=== PATIENT | male | born 1960 | race Caucasian/White ===

== ENCOUNTER 2018-02-27 09:42 | Observation (INO) | payer OTHER ==
[2018-02-27] MEDS ORDERED: NS 500 ML IV ONE (09:48)
[2018-02-27] MEDS ORDERED: ASPIRIN 81 MG CHEWABLE TAB PO ONE (09:48)
--- NOTE | 2018-02-27 09:55 | CPEKG ---
Heart Rate: 84 RR Interval: 714 P-R Interval: 144 QRSD Interval: 86 QT Interval: 372 QTC Interval: 440 P [place]: 81 QRS [place]: 87 T Wave [place]: 60 EKG Severity - ABNORMAL ECG - EKG Impression: SINUS RHYTHM EKG Impression: BIATRIAL ABNORMALITIES EKG Impression: MINIMAL ST ELEVATION, ANTERIOR LEADS Electronically Signed By: Jina Herrera 27-Feb-2018 15:11:29
[2018-02-27 10:07] LABS: PLATELET COUNT 135 10^3/uL (150-400)
[2018-02-27 10:15] LABS: INR 0.96 (0.83-1.16)
[2018-02-27] MEDS ORDERED: NITROGLYCERIN 0.4 MG BTL SL ONE (10:15)
[2018-02-27] MEDS ORDERED: NITROGLYCERIN 0.4 MG BTL SL PRN ×2 (10:16→16:35)
--- NOTE | 2018-02-27 10:30 | EDPHY ---
H & P Time Seen by Provider: 02/27/18 09:48 HPI/ROS: HPI Chest pain. 57-year-old male by private vehicle. This patient reports that at 5:00 a.m. He woke with aching mid substernal chest pain with associated shortness of breath. He states the pain is somewhat worse with taking a deep breath. Denies radiation of the pain. States that he has had pleurisy in the past which is more of a sharp pain. He describes this as a dull deep ache in the middle of his chest. He is a smoker. His father had a SD in his early 70s. He otherwise denies cardiac risk factors. He is not obese. ROS: Constitutional: No fever, no chills. No weakness. Eyes: No discharge. No changes in vision. ENT: No sore throat. No nasal congestion or rhinorrhea. Respiratory: No cough. As above. Cardiac: As above, no palpitations. Gastrointestinal: No abdominal pain, no vomiting, no diarrhea. Genitourinary: No hematuria. No dysuria or increased frequency with urination. Musculoskeletal: No back pain. No neck pain. No myalgias or arthralgias. Skin: No rashes. Neurological: No headache. No focal weakness or altered sensation. Past medical history: Bladder cancer. Not on chemotherapy. Social history: Smoker. Here by himself currently. Denies alcohol. Physical Exam: General Appearance: Alert, appears mildly anxious and uncomfortable. Sitting upright on the gurney. This patient is responding to questions appropriately and in full sentences. This patient appears well-hydrated and well-nourished. Eyes: Pupils equal and round no pallor or injection. No lid edema, erythema or injection. Respiratory: There are no retractions, lungs are clear to auscultation with good air movement bilaterally. Cardiovascular: Regular rate and rhythm. No murmur. Gastrointestinal: Abdomen is soft and nontender, no masses, bowel sounds normal. No focal tenderness at McBurney's point. No Urbina sign. Neurological: Motor sensory function is grossly intact. Cranial nerves are normal. Gait is normal. Skin: Warm and dry, no rashes. Musculoskeletal: Neck is supple and nontender. Extremities are symmetrical. All joints range without pain or impingement. Psychiatric: No agitation. No depression. Database: EKG: EKG time is 9:52 a.m.; EKG shows a narrow complex normal sinus rhythm with a ventricular rate of 84. The MN, QRS, QT intervals are within normal limits. Minimal J-point elevation leads V2 through V3. No reciprocal changes. No evidence of right heart strain. Interpreted by me. Imaging: Chest x-ray AP portable; the cardiac mediastinal silhouette is unremarkable. No evidence of infiltrate or pneumothorax. Possible interstitial lung disease. No other acute cardiopulmonary disease process noted. Interpreted by me. Procedures: Emergency department course: Triage vital signs reviewed. He is mildly hypertensive. Vital signs otherwise normal. He was given 324 mg of chewed aspirin. EKG obtained and reviewed by myself. Patient given 1 sublingual nitroglycerin. He did not like this. Stated that it did not help his pain and made him feel woozy. Heart score is 4. Admission was discussed with the patient. He endorses. 10:55 a.m., patient given 25 mcg of IV fentanyl for chest pain. As noted above he did not tolerate nitroglycerin well. 11:20 a.m., spoke with the on-call hospitalist. Patient accepted for admission to Dr. Perez. The patient's remaining emergency department course under my care has been uneventful. He is feeling better and denies chest pain after fentanyl. He was admitted in stable condition. Differential Diagnosis: The differential diagnosis on this patient includes but is not limited to acute coronary syndrome, pleurisy, pulmonary embolism, GERD. This represents a partial list of diagnoses considered. These considerations are based on history , physical exam, past history, reassessment and diagnostic testing. Smoking Status: Current every day smoker Constitutional: Initial Vital Signs Temperature (C) 36.5 C 02/27/18 09:44 Heart Rate 81 02/27/18 09:44 Respiratory Rate 18 02/27/18 09:44 Blood Pressure 134/79 H 02/27/18 09:44 O2 Sat (%) 93 02/27/18 09:44 O2 Delivery Mode Room Air O2 (L/minute) 2 Allergies/Adverse Reactions: pollen extracts Allergy (Verified 02/27/18 11:22) Home Medications: Medication Instructions Recorded Albuterol [Proventil Inhaler HFA 1 - 2 puffs IH DAILY PRN 02/27/18 (*)] Herbals/Supplements -Info Only 1 ea PO DAILY 02/27/18 Ibuprofen [Motrin (*)] 400 mg PO DAILY PRN 02/27/18 Medical Decision Making - Diagnostics Imaging Results: Imaging Impressions Chest X-Ray 02/27/18 09:48 Impression: Possible interstitial lung disease. Otherwise normal portable exam. Consider obtaining a routine PA and lateral chest, when the patient is clinically able. - Data Points Laboratory Results: Laboratory Results 02/27/18 10:00 02/27/18 10:00 02/27/18 02/27/18 02/27/18 10:04 10:00 10:00 WBC RBC Hgb Hct MCV MCH MCHC RDW Plt Count MPV Neut % (Auto) Lymph % (Auto) Levy % (Auto) Eos % (Auto) Baso % (Auto) Nucleat RBC Rel Count Absolute Neuts (auto) Absolute Lymphs (auto) Absolute Monos (auto) Absolute Eos (auto) Absolute Basos (auto) Absolute Nucleated RBC Immature Gran % Immature Gran # PT 13.0 SEC SEC (12.0-15.0) INR 0.96 (0.83-1.16) APTT 27.7 SEC SEC (23.0-38.0) D-Dimer < 0.27 ug/mLFEU ug/mLFEU (0.00-0.50) Sodium 138 mEq/L mEq/L (135-145) Potassium 4.6 mEq/L mEq/L (3.3-5.0) Chloride 106 mEq/L mEq/L (97-110) Carbon Dioxide 24 mEq/l mEq/l (22-31) Anion Gap 8 mEq/L mEq/L (8-16) BUN 23 mg/dL mg/dL (7-23) Creatinine 0.8 mg/dL mg/dL (0.7-1.3) Estimated GFR > 60 Glucose 114 mg/dL H mg/dL (70-100) Calcium 9.7 mg/dL mg/dL (8.5-10.4) POC Troponin I 0.00 ng/mL ng/mL (0.00-0.08) NT-Pro-B Natriuret Pep 59 pg/mL pg/mL (0-125) 02/27/18 10:00 WBC 13.52 10^3/uL H 10^3/uL (3.80-9.50) RBC 5.41 10^6/uL 10^6/uL (4.40-6.38) Hgb 16.9 g/dL g/dL (13.7-17.5) Hct 49.8 % % (40.0-51.0) MCV 92.1 fL fL (81.5-99.8) MCH 31.2 pg pg (27.9-34.1) MCHC 33.9 g/dL g/dL (32.4-36.7) RDW 13.1 % % (11.5-15.2) Plt Count 135 10^3/uL L 10^3/uL (150-400) MPV 9.0 fL fL (8.7-11.7) Neut % (Auto) 82.9 % H % (39.3-74.2) Lymph % (Auto) 9.2 % L % (15.0-45.0) Levy % (Auto) 7.2 % % (4.5-13.0) Eos % (Auto) 0.1 % L % (0.6-7.6) Baso % (Auto) 0.2 % L % (0.3-1.7) Nucleat RBC Rel Count 0.0 % % (0.0-0.2) Absolute Neuts (auto) 11.18 10^3/uL H 10^3/uL (1.70-6.50) Absolute Lymphs (auto) 1.25 10^3/uL 10^3/uL (1.00-3.00) Absolute Monos (auto) 0.98 10^3/uL H 10^3/uL (0.30-0.80) Absolute Eos (auto) 0.02 10^3/uL L 10^3/uL (0.03-0.40) Absolute Basos (auto) 0.03 10^3/uL 10^3/uL (0.02-0.10) Absolute Nucleated RBC 0.00 10^3/uL 10^3/uL (0-0.01) Immature Gran % 0.4 % % (0.0-1.1) Immature Gran # 0.06 10^3/uL 10^3/uL (0.00-0.10) PT INR APTT D-Dimer Sodium Potassium Chloride Carbon Dioxide Anion Gap BUN Creatinine Estimated GFR Glucose Calcium POC Troponin I NT-Pro-B Natriuret Pep Medications Given: Nitroglycerin (Nitrostat) 0.4 mg SL Q5M PRN PRN Reason: Chest Pain Last Admin: 02/27/18 10:18 Dose: 0.4 mg Discontinued Medications Aspirin (Aspirin) 324 mg PO EDNOW ONE Stop: 02/27/18 09:49 Last Admin: 02/27/18 09:57 Dose: Not Given Fentanyl (Sublimaze) 25 mcg IVP EDNOW ONE Stop: 02/27/18 10:58 Last Admin: 02/27/18 11:01 Dose: 25 mcg Sodium Chloride (Ns) 500 mls @ 1,000 mls/hr IV EDNOW ONE PRN Reason: Protocol Stop: 02/27/18 10:17 Last Admin: 02/27/18 10:10 Dose: 500 mls Point of Care Test Results: Chemistry 02/27/18 10:04 POC Troponin I 0.00 ng/mL ng/mL (0.00-0.08) Departure - Departure Disposition: [facility] Inpatient Acute Clinical Impression: Chest pain Referrals: NONE *PRIMARY CARE P,. [Primary Care Provider] - As per Instructions
[2018-02-27] MEDS ORDERED: fentaNYL 100 MCG/2 ML INJ IVP ONE (10:57)
[2018-02-27] MEDS ORDERED: KETOROLAC 30 MG/1 ML SDV IVP ONE (11:38)
[2018-02-27] MEDS ORDERED: ONDANSETRON DISINTEGRATING 4 MG TAB PO PRN (13:16)
[2018-02-27] MEDS ORDERED: ONDANSETRON 4 MG/2 ML VIAL IVP PRN (13:16)
[2018-02-27] MEDS ORDERED: ALBUTEROL 60 PUFFS/8 GM MDI IH PRN (13:19)
--- NOTE | 2018-02-27 13:24 | PDGENHP ---
History and Physical - Chief Complaint chest pain - History of Present Illness 57yo M with history of bladder cancer s/p resection, pleurisy who presents with chest pain that awoke him from sleep around 5am. Feeling well before today without any viral symptoms. Pain located on left side of chest and left scapular area without radiation. Associated with shortness of breath but no diaphoresis or nausea. Pleuritic in nature and also seemed to slightly worsen when he lies flat and improves with standing. Not exertional but progressively worsened throughout the morning prompting him to come to ED. He has never had pain like this before. Possibly had stress test ~20 years ago with normal findings. In the ED, had ECG with 1mm ARIADNE in V2-V3 with no reciprocal changes and had negative POC troponin. His chest pain improved slightly with SLN but did not resolve. His pain fully abated with a dose of toradol and he is currently chest pain free. History Information - Allergies/Home Medication List Allergies/Adverse Reactions: pollen extracts Allergy (Verified 02/27/18 11:22) Home Medications: Albuterol [Proventil Inhaler HFA (*)] 1 - 2 puffs IH DAILY PRN 02/27/18 [Last Taken Unknown] Herbals/Supplements -Info Only 1 ea PO DAILY 02/27/18 [Last Taken Unknown] Ibuprofen [Motrin (*)] 400 mg PO DAILY PRN 02/27/18 [Last Taken Unknown] I have personally reviewed and updated: family history, medical history, social history, surgical history - Past Medical History Additional medical history: bladder cancer s/p local resection, pleurisy, cytopenia (? thrombocytopenia) - Surgical History Reports: no pertinent surgical hx - Family History Additional family history: Uncle - MA at 40, Father - MA in late 60s - Social History Smoking Status: Current every day smoker (40 pack year history) Alcohol Use: Rarely Drug Use: None Review of Systems Review of Systems: ROS: 10pt was reviewed & negative except for what was stated in HPI & below Constitutional: Reports: chills, diaphoresis, fever EENMT: Reports: no symptoms Cardiac: Reports: chest pain. Denies: edema, lightheadedness, palpitations, syncope Respiratory: Reports: shortness of breath. Denies: cough, orthopnea, wheezing Gastrointestinal: Denies: vomitting, diarrhea, nausea Genitourinary: Reports: no symptoms Muscolosketal: Reports: back pain. Denies: joint swelling, muscle pain Skin: Reports: no symptoms Neurological: Reports: no symptoms Hematologic/Lymphatic: Reports: no symptoms Physical Exam Physical Exam: Temp Pulse Resp BP Pulse Ox 36.6 C 78 22 H 129/78 H 98 02/27/18 11:44 02/27/18 11:44 02/27/18 11:44 02/27/18 11:44 02/27/18 11:44 O2 (L/minute) 2 Constitutional: no apparent distress, appears nourished, not in pain Eyes: PERRL, anicteric sclera, EOMI Ears, Nose, Mouth, Throat: moist mucous membranes, hearing normal, ears appear normal, no oral mucosal ulcers Cardiovascular: regular rate and rhythym, no murmur, rub, or gallop, No JVD, No edema Respiratory: no respiratory distress, reduced air movement (mildly reduced throughout), inspiratory crackles (bilateral bases that improved with coughing) Gastrointestinal: normoactive bowel sounds, soft, non-tender abdomen, no palpable masses Genitourinary: no bladder fullness, no bladder tenderness Skin: warm, normal color, no rashes or abrasions, no fluctuance, no induration, No mottled Musculoskeletal: full muscle strength, no muscle tenderness, normal joint ROM, no joint effusions Neurologic: AAOx3, sensation intact bilaterally, CN II-XII Intact, No weakness Psychiatric: interacting appropriately, not anxious, not encephalopathic, thought process linear Lab Data & Imaging Review 02/27/18 10:00 02/27/18 10:00 WBC 13.52 10^3/uL (3.80-9.50) H 02/27/18 10:00 RBC 5.41 10^6/uL (4.40-6.38) 02/27/18 10:00 Hgb 16.9 g/dL (13.7-17.5) 02/27/18 10:00 Hct 49.8 % (40.0-51.0) 02/27/18 10:00 MCV 92.1 fL (81.5-99.8) 02/27/18 10:00 MCH 31.2 pg (27.9-34.1) 02/27/18 10:00 MCHC 33.9 g/dL (32.4-36.7) 02/27/18 10:00 RDW 13.1 % (11.5-15.2) 02/27/18 10:00 Plt Count 135 10^3/uL (150-400) L 02/27/18 10:00 MPV 9.0 fL (8.7-11.7) 02/27/18 10:00 Neut % (Auto) 82.9 % (39.3-74.2) H 02/27/18 10:00 Lymph % (Auto) 9.2 % (15.0-45.0) L 02/27/18 10:00 [place] % (Auto) 7.2 % (4.5-13.0) 02/27/18 10:00 Eos % (Auto) 0.1 % (0.6-7.6) L 02/27/18 10:00 Baso % (Auto) 0.2 % (0.3-1.7) L 02/27/18 10:00 Nucleat RBC Rel Count 0.0 % (0.0-0.2) 02/27/18 10:00 Absolute Neuts (auto) 11.18 10^3/uL (1.70-6.50) H 02/27/18 10:00 Absolute Lymphs (auto) 1.25 10^3/uL (1.00-3.00) 02/27/18 10:00 Absolute Monos (auto) 0.98 10^3/uL (0.30-0.80) H 02/27/18 10:00 Absolute Eos (auto) 0.02 10^3/uL (0.03-0.40) L 02/27/18 10:00 Absolute Basos (auto) 0.03 10^3/uL (0.02-0.10) 02/27/18 10:00 Absolute Nucleated RBC 0.00 10^3/uL (0-0.01) 02/27/18 10:00 Immature Gran % 0.4 % (0.0-1.1) 02/27/18 10:00 Immature Gran # 0.06 10^3/uL (0.00-0.10) 02/27/18 10:00 PT 13.0 SEC (12.0-15.0) 02/27/18 10:00 INR 0.96 (0.83-1.16) 02/27/18 10:00 APTT 27.7 SEC (23.0-38.0) 02/27/18 10:00 D-Dimer < 0.27 ug/mLFEU (0.00-0.50) 02/27/18 10:00 Sodium 138 mEq/L (135-145) 02/27/18 10:00 Potassium 4.6 mEq/L (3.3-5.0) 02/27/18 10:00 Chloride 106 mEq/L (97-110) 02/27/18 10:00 Carbon Dioxide 24 mEq/l (22-31) 02/27/18 10:00 Anion Gap 8 mEq/L (8-16) 02/27/18 10:00 BUN 23 mg/dL (7-23) 02/27/18 10:00 Creatinine 0.8 mg/dL (0.7-1.3) 02/27/18 10:00 Estimated GFR > 60 02/27/18 10:00 Glucose 114 mg/dL (70-100) H 02/27/18 10:00 Calcium 9.7 mg/dL (8.5-10.4) 02/27/18 10:00 POC Troponin I 0.00 ng/mL (0.00-0.08) 02/27/18 10:04 NT-Pro-B Natriuret Pep 59 pg/mL (0-125) 02/27/18 10:00 Visualized and Interpreted Chest x-ray results: Yes Chest X-Ray results: no infiltrate, other (hyperexpanded with prominent interstitial markings) Visualized and Interpreted EKG results: Yes EKG Interpretation: Positive for: normal sinsus rhythm (biatrial enlargement, 1mm ARIADNE in V2-V3 without reciprocal changes) Assessment & Plan Assessment: 57yo M with history of tobacco use and family history of premature CAD presents with chest pain admitted for ACS rule out. Plan: #Chest pain: Atypical in nature. Intermediate risk for coronary disease. Symptoms also concerning for pericarditis given resolution with nsaids. Will check serial troponin/ECG, continuous telemetry monitoring and order TTE. If troponins remain negative, plan to proceed with exercise stress testing. Unlikely PE with negative d-dimer. #Thrombocytopenia: Mild. Per patient, he thinks this is chronic. No e/o bleeding. Monitor. #Leukocytosis: Suspect reactive in setting of above. Monitor. #Tobacco use: Nicotine patch PRN. Given his extensive history and hyperexpanded lungs, he almost certainly as emphysema. Will order PRN albuterol. He should establish with PCP for PFTs as outpatient. VTE ppx: low risk, SCDs Diet: cardiac Code: Full Disposition: admit for observation for evaluation of chest pain with serial labs , cardiac monitoring.
[2018-02-27] MEDS: ACETAMINOPHEN 325 MG TAB PO PRN ×2 (14:04→18:29)
--- NOTE | 2018-02-27 14:13 | CPEKG ---
Heart Rate: 66 RR Interval: 909 P-R Interval: 160 QRSD Interval: 82 QT Interval: 392 QTC Interval: 411 P [place]: 79 QRS [place]: 80 T Wave [place]: 64 EKG Severity - ABNORMAL ECG - EKG Impression: SINUS RHYTHM EKG Impression: ST ELEVATION SUGGESTS PERICARDITIS - CANNOT RULE OUT ANTERIOR ISCHEMIA Electronically Signed By: Birgit Fonseca 27-Feb-2018 17:13:17
--- NOTE | 2018-02-27 15:44 | ECHO ---
[email or web address] [address] [address] Main: [phone] Fax: Transthoracic Echocardiogram Name: ANETTE MCKEON MR#: [id number] Study Date: 02/27/2018 Study Time: 02:55 PM Date of : 1960 Age: 57 year(s) Height: 182.9 cm (72 in.) Weight: 64.86 kg (143 lb.) BSA: 1.85 m2 Gender: Male Examination: Echo Indication: Chest Pain, eval ventricular/valvular function and pericardial disease Image Quality: Technically Difficult Contrast: Requested by: Jose Luis Delong BP: 108 mmHg/62 mmHg Heart Rate: Rhythm: Indication: Chest Pain, eval ventricular/valvular function and pericardial disease Procedure Staff Mess Cook: Reading Physician: Requesting Provider: Mess Cook: Shruthi Ludwig [facility] Reading Physician: Jesse Sultana MD Requesting Provider: Conclusions: Normal global systolic LV function. EF is 58 %. There is mild thickening of the mitral valve leaflets. Trivial mitral valve regurgitation. Cannot rule out bicuspid aortic valve. Mild tricuspid regurgitation is present. Right ventricular systolic pressure measures 20mmHg. Normal size aortic root measuring 3.2 cm. Measurements: Chambers Valvular Assessment AV/MV Valvular Assessment TV/PV Normal Normal Normal Name Value Range Name Value Range Name Value Range Ao Jennifer (MM): 3.2 cm (2.2 cm-3.7 AV Vmax: 1.20 m/s (1 m/s-1.7 TR Vmax: 1.91 mm/s ( - ) cm) m/s) TR PGmax: 15 mmHg ( - ) IVSd (2D): 0.9 cm (0.6 cm-1.1 AV maxP mmHg ( - ) syst. PAP: 20 mmHg ( - ) cm) LVOT Vmax: 0.68 m/s (0.7 m/s-1.1 PV Vmax: 0.71 m/s (0.6 m/s-0.9 LVDd (2D): 4.0 cm (4.2 cm-5.9 m/s) m/s) cm) MV E Vmax: 0.61 m/s ( - ) PV PGmax: 2 mmHg ( - ) LVDs (2D): 2.8 cm (2.1 cm-4 MV A Vmax: 0.44 m/s ( - ) cm) MV E/A: 1.39 ( - ) LVPWd (2D): 0.8 cm (0.6 cm-1 cm) LVEF (2D): 58 (>=54 %) RVDd(2D): 2.9 cm (1.9 cm-3.8 cmmm) Patient: ANETTE MCKEON Study Date: 02/27/2018 Page 1 of 2 02:55 PM Continued Measurements: Chambers Valvular Assessment AV/MV Valvular Assessment TV/PV Name Value Name Value Name Value LADs Lon.5 cm MV DecTime: 327 m/s CVP (est.): 5 mmHg LA Area: 12.5 cm2 MV E' Septal: 0.10 m/s TAPSE: 1.9 cm MV E/E' Septal: 5.90 RA Area: 10.3 cm2 Additional Vessels Name Value Ao Ascendin.6 cm Findings: Left Ventricle: Normal size left ventricle. No LV hypertrophy. Normal global systolic LV function. EF is 58 %. No regional wall motion abnormality. Normal diastolic LV function. Right Ventricle: Normal size right ventricle. Normal RV function. Left Atrium: The left atrium is normal in size. Right Atrium: The right atrium is normal in size. Mitral Valve: The mitral valve is normal in appearance. There is mild thickening of the mitral valve leaflets. Trivial mitral valve regurgitation. No mitral stenosis is present. Aortic Valve: Cannot rule out bicuspid aortic valve. There is no aortic valve regurgitation. No aortic valve stenosis is present. Tricuspid Valve: The tricuspid valve is normal in appearance and function. Mild tricuspid regurgitation is present. Right ventricular systolic pressure measures 20mmHg. The pulmonary artery pressure is normal. Pulmonic Valve: Pulmonary valve not well visualized. There is no pulmonic regurgitation seen. Aorta: Normal size aortic root measuring 3.2 cm. Normal size ascending aorta measuring 2.6 cm. IVC: Normal size and course of the IVC. Pericardium: No pericardial effusion. (No Signature Object) Patient: ANETTE MCKEON Study Date: 02/27/2018 Page 2 of 2 02:55 PM [id number]
[2018-02-27] MEDS: KETOROLAC 15 MG/1 ML SDV IVP PRN (20:48)
[2018-02-28] MEDS: KETOROLAC 15 MG/1 ML SDV IVP PRN (03:40)
[2018-02-28 04:48] LABS: PLATELET COUNT 114 10^3/uL (150-400)
[2018-02-28 07:53] VITALS: BP 106/57
[2018-02-28] MEDS ORDERED: PNEUMOCOCCAL 0.5ML VACCINE VIAL IM ONE ×2 (10:20→15:30)
--- NOTE | 2018-02-28 11:50 | CPR ---
[f rep st] NONINVASIVE CARDIAC PROCEDURE REPORT PROCEDURE: Exercise treadmill with exercise treadmill MPI study. 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 PRE: After obtaining informed consent, patient was placed on electrocardiogram. Initial EKG showed sinus rhythm with mildly peaked T-waves in V2 and V3, RSR prime noted in V1. Initial blood pressure was 118/60, saturation 95% on room air. Patient reporting occasional chest pr essure on left side with inspiration and expiration, but not continuous. Reporting no other symptoms . STRESS: Patient was placed on exercise treadmill, following standard [place] protocol with the followin g findings: 1. Patient exercised for 9 minutes and 45 seconds. 2. 10.2 METS. 3. Heart rate obtained was 139 beats per minute, which was 86% of MPHR. 4. Patient did report continuation of inspiration and expiration left-sided chest pressure, but beatriz es it getting worsened with exertion. No chest pressure suggestive of exertional ischemia. 5. No arrhythmias noted during rest, stress or recovery. 6. BP response at rest 118/60, peak 168/70. 7. Patient did note at peak exercise to drop saturation down to 89%. 8. Test was stopped due to maximum effort. 9. Castellanos treadmill score of 9, placing him at low cardiovascular risk. RECOVERY: Patient recovered for 5 minutes, saturations increased back to greater than 90%. Blood pr essure and heart rate returned back to normal. No arrhythmias noted. No significant change in his r espiratory pain. Vital signs are stable. The patient was taken to Nuclear Medicine for post-stress imaging. IMPRESSION: 57-year-old male with history of smoking and an abnormal electrocardiogram, undergoing e xercise MPI study for evaluation of ischemia. Patient reporting prior to starting study of respirato ry chest pain, but did not worsen throughout testing and was not limiting. No significant ST shifts at peak exercise suggestive of ischemia. Normal BP response. Patient noted to drop his SpO2 down to 89% at peak exercise. No arrhythmias. Nuclear imaging results pending. Results of stress testing went over with Dr. Martinez and hospital services. /[id number]/MODL
--- NOTE | 2018-02-28 15:13 | ASMTCMCOM ---
CM Note CM Note Notes: Chart reviewed. 57 year old male with c/o chest pain admitted via ED. Cardiac workup negative and patient has been discharged to home. No needs identified. CM available should needs arise, Plan: Home without services. Date Signed: 02/28/2018 02:47 PM Electronically Signed By:Татьяна Robert RN
--- NOTE | 2018-02-28 16:24 | PDDCSUM ---
Discharge Summary Discharge Summary: Date of Admission: 02/27/2018 Date of Discharge: 02/28/2018 Consultants: cardiology Procedures: exercise stress test with MPI, TTE Brief Hospital Course by Diagnosis: 57yo M with history of tobacco use and family history of premature CAD presents with chest pain admitted for ACS rule out. #Chest pain: Troponins negative. Exercise stress with MPI without ischemia. I suspect pericarditis as the primary diagnosis (positional pain, varying ARIADNE in precordial leads without reciprocal depressions), which was likely idiopathic vs viral in etiology. His TTE did not have a pericardial effusion. We discussed high dose NSAID therapy for the next week or so and discussed GI and renal side effects. He should establish and follow up with a PCP. #Thrombocytopenia: Mild. Per patient, he thinks this is chronic. No e/o bleeding. Encourage outpatient monitoring. #Tobacco use: Given his extensive history and hyperexpanded lungs, he almost certainly as emphysema. He should establish with PCP for PFTs as outpatient. Items for Follow Up: 1. Recommend establishing with PCP to follow up chest discomfort 2. Smoking cessation 3. Routine healthcare maintenance (he hasn't seen physician in several years) 4. Monitor thrombocytopenia 5. PFTs Tests Pending at Discharge: none Medications at Discharge: Please refer to EMR for complete medication list. We recommended ibuprofen 600-800mg TID PRN for 1 week, otherwise no changes. Physical Exam: Vitals reviewed and patient examined on day of discharge. He is alert with normal cardiac exam.
== END 2018-02-28 16:10 | disposition home or self-care (01) ==
LOC: F2W 13:17
PROVIDERS: ADMIT Internal Medicine; ATTEND Internal Medicine
DX: R07.9 Chest pain, unspecified (principal); R06.00 Dyspnea, unspecified; F17.210 Nicotine dependence, cigarettes, uncomplicated; Z23 Encounter for immunization; Z82.49 Family history of ischemic heart disease and other diseases of the circulatory system; Z85.51 Personal history of malignant neoplasm of bladder
CPT/HCPCS: 71045; 78452; 90471; 93005; 93017; 93306; 96374; 96375; 99285; A9500; G0378; 84484-PO; G0009; J1885; J3010